=== PATIENT | male | born 1975 | race Caucasian/White ===

== ENCOUNTER 2020-03-05 07:56 | Emergency (ER) | payer OTHER ==
[~2020-03-05] VITALS: Ht 170.2 cm; Wt 61.2 kg
[2020-03-05 08:00] VITALS: BP 139/92
[2020-03-05] MEDS ORDERED: MORPHINE SULFATE 2 MG/ML SYR IM ONE (08:15)
[2020-03-05 08:47] VITALS: BP 139/92
== END 2020-03-05 08:47 | disposition home or self-care (01) ==
LOC: MED 07:56 → EDBD 07:56 → MED 08:47
DX: S51.002A Unspecified open wound of left elbow, initial encounter (principal); G89.0 Central pain syndrome; R03.0 Elevated blood-pressure reading, without diagnosis of hypertension; F17.200 Nicotine dependence, unspecified, uncomplicated; V89.2XXA Person injured in unspecified motor-vehicle accident, traffic, initial encounter; Y93.89 Activity, other specified; Y92.89 Other specified places as the place of occurrence of the external cause; Y99.8 Other external cause status
CPT/HCPCS: 96372; 99283; J2270